=== PATIENT | male | born 1990 | race African-American/Black ===

== ENCOUNTER 2017-11-03 14:02 | Emergency (ER) | payer OTHER ==
[~2017-11-03] VITALS: Ht 188 cm; Wt 63.5 kg
[2017-11-03] MEDS ORDERED: HYDROCODONE-AP1 EAC6 PO (14:17)
[2017-11-03] MEDS ORDERED: PENICILLIN V P500 MG PO (14:17)
[2018-01-23] MEDS ORDERED: NOHOMEMEDICATIONS (20:05)
[2018-01-23] MEDS ORDERED: MOBIC15 MG PO (21:29)
== END 2017-11-03 14:39 | disposition home or self-care (01) ==
LOC: ER 14:02
DX: K02.9 Dental caries, unspecified (principal); F17.210 Nicotine dependence, cigarettes, uncomplicated

== ENCOUNTER 2017-12-19 17:26 | Emergency (ER) | payer OTHER ==
[~2017-12-19] VITALS: Ht 188 cm; Wt 65.8 kg
[~2017-12-19 17:26] MED LIST: HYDROCODONE-AP1 EAC6 PO; PENICILLIN V P500 MG PO
[2017-12-19] MEDS ORDERED: NORCO 10-325 T1 EACH PO (19:20)
[2018-01-23] MEDS ORDERED: NOHOMEMEDICATIONS (20:05)
[2018-01-23] MEDS ORDERED: MOBIC15 MG PO (21:29)
== END 2017-12-19 19:33 | disposition home or self-care (01) ==
LOC: ER 17:26
DX: S83.8X1A Sprain of other specified parts of right knee, initial encounter (principal); F17.210 Nicotine dependence, cigarettes, uncomplicated; V49.59XA Passenger injured in collision with other motor vehicles in traffic accident, initial encounter; Y93.89 Activity, other specified; Y92.89 Other specified places as the place of occurrence of the external cause; Y99.8 Other external cause status